=== PATIENT | male | born 1990 | race Caucasian/White ===

== ENCOUNTER 2020-09-03 01:21 | Emergency (ER) | payer OTHER ==
[~2020-09-03] VITALS: Ht 182.9 cm; Wt 63.5 kg
[2020-09-03 02:38] VITALS: BP 118/71
[2020-09-03] MEDS ORDERED: CEPHALEXIN500 MG PO (02:39)
== END 2020-09-03 02:45 | disposition home or self-care (01) ==
LOC: ER 01:21
DX: S61.412A Laceration without foreign body of left hand, initial encounter (principal); W26.8XXA Contact with other sharp object(s), not elsewhere classified, initial encounter; Y93.89 Activity, other specified; Y92.89 Other specified places as the place of occurrence of the external cause; Y99.8 Other external cause status